=== PATIENT | female | born 2000 | race Caucasian/White ===

== ENCOUNTER 2021-10-30 15:34 | Emergency (ER) | payer OTHER ==
[~2021-10-30] VITALS: Ht 162.6 cm; Wt 77.3 kg
[2021-10-30 15:46] VITALS: TEMP 98.1
[2021-10-30 17:48] VITALS: BP 127/77; PULSE 67
== END 2021-10-30 17:00 | disposition home or self-care (01) ==
LOC: COL.ER 15:34
DX: S63.502A Unspecified sprain of left wrist, initial encounter (principal); Z28.310 Unvaccinated for COVID-19; W01.0XXA Fall on same level from slipping, tripping and stumbling without subsequent striking against object, initial encounter

== ENCOUNTER 2023-07-03 16:19 | Emergency (ER) | payer OTHER ==
[~2023-07-03] VITALS: Ht 162.6 cm; Wt 79.5 kg
[~2023-07-03 16:19] MED LIST: ASPIRIN E.C. 8181 MG PO; NURTEC ODT75 MG PO; ZOLOFT 50MG50 MG PO
[2023-07-03 16:32] VITALS: TEMP 98
[2023-07-03] MEDS ORDERED: Ondansetron 4 MG/2 ML VIAL IV ONE (17:15)
[2023-07-03] MEDS ORDERED: Ketorolac 30 MG/ML VIAL IV ONE (17:15)
[2023-07-03] MEDS ORDERED: NS 1,000 ML IV ONE (17:15)
[2023-07-03 17:21] LABS: BASO # 0.1 K/mm3 (0.0-0.2); BASO % 0.5 % (0.0-2.0); EOS # 0.1 K/mm3 (0.0-0.7); EOS % 0.9 % (0.0-4.0); GRAN # 7.7 K/mm3 (1.4-6.5); GRAN % 72.3 % (42.2-75.2); HEMATOCRIT 40.4 % (37.0-47.0); HEMOGLOBIN 13.5 g/dl (12.5-16.0); LYMPH # 1.7 K/mm3 (1.2-3.4); LYMPH % 15.9 % (20.0-51.0); MEAN CELL VOLUME 88 fl (80.0-100.0); MEAN CORPUSCULAR HEMOGLOBIN 29 pg (27-31); MEAN CORPUSCULAR HGB CONC 33 g/dl (33.0-37.0); MEAN PLATELET VOLUME 10.7 fl (7.4-10.4); MONO # 1.1 K/mm3 (0.1-0.6); PLATELET COUNT 263 K/mm3 (130-400); RED BLOOD COUNT 4.59 M/mm3 (4.10-5.30)
[2023-07-03 17:36] LABS: COLLECTION METHOD CLEAN CATCH
[2023-07-03 17:36] LABS: ALBUMIN 4.2 g/dL (3.5-5.0); BILIRUBIN,TOTAL 0.8 mg/dL (0.2-1.2); C-REACTIVE PROTEIN 1.61 mg/dL (0.00-0.50); CREATININE, serum 0.74 mg/dL (0.57-1.11); POTASSIUM 3.4 mEq/L (3.5-4.5); TOTAL PROTEIN 7.7 g/dl (6.2-8.1)
[2023-07-03 18:15] LABS: PH 5.5 (5.0-8.5); URINE APPEARANCE TURBID (CLEAR/HAZY); URINE BLOOD 3+ (NEGATIVE); URINE COLOR Dark Yellow (YELLOW); URINE GLUCOSE NEGATIVE (NEGATIVE); URINE KETONE TRACE (NEGATIVE); URINE NITRATE POSITIVE (NEGATIVE); URINE PROTEIN(semi-quant) 3+ (NEGATIVE); URINE UROBILINOGEN 0.2 E.U/dL (0.2-1.0)
[2023-07-03 18:25] LABS: URINE BACTERIA MODERATE /hpf (NONE SEEN); URINE RBC 0-2 /hpf (0-2); URINE WBC >50 /hpf (0-2)
[2023-07-03] MEDS ORDERED: CEPHALEXIN500 M1 PO (19:25)
[2023-07-03] MEDS ORDERED: ZOFRAN ODT4 MG PO (19:26)
[2023-07-03] MEDS ORDERED: cefTRIAXone 1 G in Water For Injection,Sterile 10 ML IV ONE (19:30)
[2023-07-03 19:57] VITALS: BP 129/77; PULSE 81
== END 2023-07-03 20:23 | disposition home or self-care (01) ==
LOC: COL.ER 16:19
PROVIDERS: Emergency Medicine
DX: N39.0 Urinary tract infection, site not specified (principal); R11.10 Vomiting, unspecified; Z87.891 Personal history of nicotine dependence
CPT/HCPCS: J0696; J1885; J2405; J7030

== ENCOUNTER 2023-08-22 12:43 | Emergency (ER) | payer OTHER ==
[~2023-08-22] VITALS: Wt 74.5 kg
[~2023-08-22 12:43] MED LIST changes: +CEPHALEXIN500 M1 PO; +ZOFRAN ODT4 MG PO
[2023-08-22 13:15] LABS: BASO # 0.1 K/mm3 (0.0-0.2); BASO % 0.5 % (0.0-2.0); EOS # 0.1 K/mm3 (0.0-0.7); EOS % 0.7 % (0.0-4.0); GRAN % 73.7 % (42.2-75.2); HEMATOCRIT 42.7 % (37.0-47.0); HEMOGLOBIN 13.9 g/dl (12.5-16.0); LYMPH # 1.8 K/mm3 (1.2-3.4); LYMPH % 16.2 % (20.0-51.0); MEAN CELL VOLUME 89 fl (80.0-100.0); MEAN CORPUSCULAR HEMOGLOBIN 29 pg (27-31); MEAN CORPUSCULAR HGB CONC 33 g/dl (33.0-37.0); MEAN PLATELET VOLUME 10.8 fl (7.4-10.4); MONO # 0.9 K/mm3 (0.1-0.6); MONO % 8.5 % (1.7-9.3); PLATELET COUNT 291 K/mm3 (130-400); REDCELL DISTRIBUTION WIDTH-CV 13.1 % (11.5-14.5)
[2023-08-22] MEDS ORDERED: NS 1,000 ML IV ONE (13:15)
[2023-08-22 13:18] LABS: INR 1.2 (0.8-3.0); PROTHROMBIN TIME 12.8 SECONDS (9.7-12.8)
[2023-08-22 13:20] VITALS: TEMP 97.2
[2023-08-22 13:31] LABS: ALANINE AMINOTRANSFERASE 23 U/L (0-55); ALBUMIN 4.5 g/dL (3.5-5.0); ALKALINE PHOSPHATASE 54 U/L (40-150); ANION GAP 9 mmol/L (7-16); AST,SGOT 20 U/L (5-34); BILIRUBIN,TOTAL 0.6 mg/dL (0.2-1.2); BLOOD UREA NITROGEN 13 mg/dL (7-19); CALCIUM 10.5 mg/dL (8.4-10.2); CHLORIDE 107 mEq/L (98-107); CREATININE, serum 0.73 mg/dL (0.57-1.11); GLUCOSE 91 mg/dL (70-99); POTASSIUM 4.5 mEq/L (3.5-4.5); SODIUM 139 mEq/L (136-145); TOTAL PROTEIN 7.6 g/dl (6.2-8.1)
[2023-08-22 13:32] LABS: ALCOHOL(ethanol),MEDICAL < 10 mg/dL (0-10)
[2023-08-22 13:39] LABS: TROPONIN-I < 0.010 ng/mL (0.00-0.033)
[2023-08-22] MEDS ORDERED: NS 100 ML IV.SOLN. IY SCH (13:55)
[2023-08-22] MEDS ORDERED: Iohexol 300 - 100 ML VIAL IV ONE (13:55)
[2023-08-22 13:56] LABS: COLLECTION METHOD CLEAN CATCH
[2023-08-22 14:09] LABS: URINE APPEARANCE Clear (CLEAR/HAZY); URINE BLOOD 1+ (NEGATIVE); URINE COLOR YELLOW (YELLOW); URINE GLUCOSE Negative (NEGATIVE); URINE KETONE Negative (NEGATIVE); URINE NITRATE Negative (NEGATIVE); URINE PROTEIN(semi-quant) Negative (NEGATIVE); URINE UROBILINOGEN 0.2 E.U/dL (0.2-1.0)
[2023-08-22 14:15] LABS: TRICYCLIC ANTIDEPRESS URINE NEGATIVE (NEGATIVE)
[2023-08-22] MEDS ORDERED: Ketorolac 15 MG/ML VIAL IV ONE (15:15)
[2023-08-22] MEDS ORDERED: diphenhydrAMINE 50 MG/ML 1 ML VIAL IV ONE (15:15)
[2023-08-22] MEDS ORDERED: dexAMETHasone 10 MG/ML VIAL IV ONE (15:15)
[2023-08-22 17:28] VITALS: BP 115/67; PULSE 82
== END 2023-08-22 17:30 | disposition home or self-care (01) ==
LOC: COL.ER 12:43
PROVIDERS: Emergency Medicine
DX: R20.2 Paresthesia of skin (principal); D68.2 Hereditary deficiency of other clotting factors; Z79.82 Long term (current) use of aspirin
CPT/HCPCS: J1100; J1200; J1885; J2765; J7030; Q9967